=== PATIENT | female | born 1950 | race Caucasian/White ===

== ENCOUNTER 2016-12-18 20:08 | Emergency (ER) | payer MEDICARE, OTHER ==
[~2016-12-18] VITALS: Ht 167.6 cm; Wt 63.5 kg
[~2016-12-18 20:08] MED LIST: CIPR500T PO
[2016-12-18 20:14] VITALS: BP 170/87
[2016-12-18] MEDS ORDERED: IV NORMAL SALINE 1000ML BAG 1,000 ML IV ONE ×2 (20:30→21:30)
[2016-12-18 20:33] LABS: BASO # 0.1 x10^3/uL (0.0-0.2); BASO % 1 % (0-3); EOS % 3 % (0-3); HEMATOCRIT 38.7 % (36.0-47.0); HEMOGLOBIN 13.1 g/dL (12.0-15.5); LYMPH # 0.7 x10^3/uL (1.0-4.8); LYMPH % 7 % (24-48); MEAN CORPUSCULAR HEMOGLOBIN 29 pg (25-35); MEAN CORPUSCULAR HGB CONC 34 g/dL (31-37); MEAN CORPUSCULAR VOLUME 86 fL (79-100); MONO % 9 % (0-9); NEUT % 81 % (31-73); PLATELET COUNT 274 x10^3/uL (140-400); RED BLOOD COUNT 4.52 x10^6/uL (3.50-5.40); RED CELL DISTRIBUTION WIDTH 13.1 % (11.5-14.5); WHITE BLOOD COUNT 9.5 x10^3/uL (4.0-11.0)
[2016-12-18 20:46] LABS: OBC FLU VALID
[2016-12-18 20:46] LABS: CALCIUM 8.7 mg/dL (8.5-10.1); CREATININE 0.9 mg/dL (0.6-1.0); GFR 62.3; POTASSIUM 3.4 mmol/L (3.5-5.1)
[2016-12-18 20:52] LABS: ALBUMIN 3.6 g/dL (3.4-5.0); ALBUMIN/GLOBULIN RATIO 1.1 (1.0-1.7); TOTAL BILIRUBIN 0.3 mg/dL (0.2-1.0); TOTAL PROTEIN 6.9 g/dL (6.4-8.2)
--- NOTE | 2016-12-18 22:31 | PHYS DOC ---
Past Medical History Past Medical History: Asthma, Cancer, Depression Past Surgical History: Hysterectomy, Other Additional Past Surgical Histo: Bilateral cataracts Alcohol Use: Rarely Drug Use: None Adult General Chief Complaint Chief Complaint: FEVER HPI HPI 66-year-old female presented by EMS for fever and weakness the last several days with no nausea or vomiting. Patient does states she's had a cough and congestion and multiple sick contacts with influenza. Patient currently speaking in complete sentences in no respiratory distress at this time. Patient denies any chest pain. Review of Systems Review of Systems Constitutional: Has fever, has chills [] Eyes: Denies change in visual acuity, redness, or eye pain [] HENT: Denies nasal congestion or sore throat [] Respiratory: Has cough, denies shortness of breath [] Cardiovascular: No additional information not addressed in HPI [] GI: Denies abdominal pain, nausea, vomiting, bloody stools or diarrhea [] : Denies dysuria or hematuria [] Musculoskeletal: Denies back pain or joint pain [] Integument: Denies rash or skin lesions [] Neurologic: Denies headache, focal weakness or sensory changes [] Endocrine: Denies polyuria or polydipsia [] Current Medications Current Medications Current Medications Medications (Trade) Dose Ordered Sig/Fabrizio Start Time Stop Time Status Last Admin Dose Admin Sodium Chloride (Iv Sodium Chloride 0.9% 1000ml Bag) 1,000 ml @ 1,000 mls/hr 1X ONCE 12/18/16 21:30 12/18/16 22:29 DC 12/18/16 21:24 1,000 MLS/HR Allergies Allergies Allergies Coded Allergies Type Severity Reaction Last Updated Verified Penicillins Allergy Unknown 12/18/16 Yes Sulfa (Sulfonamide Antibiotics) Allergy Unknown 12/18/16 Yes erythromycin base Allergy Unknown 12/18/16 Yes Physical Exam Physical Exam Constitutional: Well developed, well nourished, no acute distress, non-toxic appearance. [] HENT: Normocephalic, atraumatic, bilateral external ears normal, oropharynx moist, no oral exudates, nose normal. [] Eyes: PERRLA, EOMI, conjunctiva normal, no discharge. [] Neck: Normal range of motion, no tenderness, supple, no stridor. [] Cardiovascular:Heart rate regular rhythm, no murmur [] Lungs & Thorax: Bilateral breath sounds clear to auscultation [] Abdomen: Bowel sounds normal, soft, no tenderness, no masses, no pulsatile masses. [] Skin: Warm, dry, no erythema, no rash. [] Back: No tenderness, no CVA tenderness. [] Extremities: No tenderness, no cyanosis, no clubbing, ROM intact, no edema. [] Neurologic: Alert and oriented X 3, normal motor function, normal sensory function, no focal deficits noted. [] Psychologic: Affect normal, judgement normal, mood normal. [] Current Patient Data Vital Signs Vital Signs Date Time Temp Pulse Resp B/P Pulse Ox O2 Delivery O2 Flow Rate FiO2 12/18/16 20:14 99.3 127 20 170/87 95 Room Air 99.3 Lab Values Laboratory Tests Test 12/18/16 20:10 12/18/16 20:23 Influenza Type A Antigen Negative (NEGATIVE) Influenza Type B Antigen Negative (NEGATIVE) White Blood Count 9.5x10^3/uL (4.0-11.0) Red Blood Count 4.52x10^6/uL (3.50-5.40) Hemoglobin 13.1g/dL (12.0-15.5) Hematocrit 38.7% (36.0-47.0) Mean Corpuscular Volume 86fL (79-100) Mean Corpuscular Hemoglobin 29pg (25-35) Mean Corpuscular Hemoglobin Concent 34g/dL (31-37) Red Cell Distribution Width 13.1% (11.5-14.5) Platelet Count 274x10^3/uL (140-400) Neutrophils (%) (Auto) 81% (31-73) H Lymphocytes (%) (Auto) 7% (24-48) L Monocytes (%) (Auto) 9% (0-9) Eosinophils (%) (Auto) 3% (0-3) Basophils (%) (Auto) 1% (0-3) Neutrophils # (Auto) 7.6x10^3uL (1.8-7.7) Lymphocytes # (Auto) 0.7x10^3/uL (1.0-4.8) L Monocytes # (Auto) 0.9x10^3/uL (0.0-1.1) Eosinophils # (Auto) 0.2x10^3/uL (0.0-0.7) Basophils # (Auto) 0.1x10^3/uL (0.0-0.2) Sodium Level 138mmol/L (136-145) Potassium Level 3.4mmol/L (3.5-5.1) L Chloride Level 103mmol/L (98-107) Carbon Dioxide Level 25mmol/L (21-32) Anion Gap 10 (6-14) Blood Urea Nitrogen 10mg/dL (7-20) Creatinine 0.9mg/dL (0.6-1.0) Estimated GFR (Cockcroft-Gault) 62.3 BUN/Creatinine Ratio 11 (6-20) Glucose Level 113mg/dL (70-99) H Lactic Acid Level 1.5mmol/L (0.4-2.0) Calcium Level 8.7mg/dL (8.5-10.1) Total Bilirubin 0.3mg/dL (0.2-1.0) Aspartate Amino Transferase (AST) 13U/L (15-37) L Alanine Aminotransferase (ALT) 18U/L (14-59) Alkaline Phosphatase 70U/L (46-116) Total Protein 6.9g/dL (6.4-8.2) Albumin 3.6g/dL (3.4-5.0) Albumin/Globulin Ratio 1.1 (1.0-1.7) Laboratory Tests 12/18/16 20:23 Laboratory Tests 12/18/16 20:23 EKG EKG EKG as interpreted by hi shows a sinus tachycardia with a rate of 113 bpm. There is slight QTC prolongation at 508 ms. There are no acute ST findings. Radiology/Procedures Radiology/Procedures Portable 1 view chest as interpreted by hi does not reveal any acute cardiopulmonary abnormality. Course & Med Decision Making Course & Med Decision Making Pertinent Labs and Imaging studies reviewed. (See chart for details) This 66-year-old female who presented with a mild tachycardia and findings concerning for influenza did not have influenza on swabs. Her laboratory workup was also negative. Her EKG and chest xray were unremarkable. Patient was given 2L of IV fluid with mild resolution of her tachycardia. I offered the patient admission for dehydration and weakness but she declined stating she had matters at home that she needed to attend to. I stated she must be judicious with her fluid intake and to follow closely with her primary doctor next 1-2 days. Patient was very agreeable as planned and ultimately discharged without incident. Dragon Disclaimer Dragon Disclaimer This electronic medical record was generated, in whole or in part, using a voice recognition dictation system. Departure Departure Impression: Primary Impression: Fever Disposition: 01 HOME, SELF-CARE Admitting Physician: Other Condition: STABLE Referrals: JONNA CREWS (PCP) Patient Instructions: Fever, Adult, [id number] Additional Instructions: Please continue to drink plenty of fluids and follow-up with your primary doctor in next 1-2 days. Return to the ER if you develop any worsening of your symptoms. SAM MARTIN DO Dec 18, 2016 22:31
--- NOTE | 2016-12-19 06:36 | EKG ---
[facility] [address] [place] [address] Test Date: 2016-12-18 Test Time: 20:40:46 Pat Name: ERIC HAY Department: Room: Gender: F [employer]: : 1950 Requested By: SAM MARTIN Order Number: [id number] Reading MD: Malissa Gage Measurements Intervals [place] Rate: 113 P: 36 ID: [id number] QRS: -16 QRSD: 84 T: 31 QT: 366 QTc: 508 Interpretive Statements SINUS TACHYCARDIA ATRIAL PREMATURE COMPLEX(ES) LEFTWARD AXIS ABNORMAL ECG RI6.01 No previous ECG available for comparison Electronically Signed On 12-20-2016 0:42:35 [employer] by Malissa Gage
--- NOTE | 2016-12-19 08:33 | RAD ---
Indication flulike symptoms for 2 days. A single view of the chest was obtained. No prior imaging of the chest is available. The heart and pulmonary vessels appear normal. The lungs are clear. There is no pleural fluid or pneumothorax and the visualized bony structures appear grossly intact. IMPRESSION: No acute or significant finding seen in the chest
== END 2016-12-18 22:40 | disposition home or self-care (01) ==
LOC: ER 20:08
DX: R50.9 Fever, unspecified (principal); R05 Cough; R00.0 Tachycardia, unspecified; R09.81 Nasal congestion; R53.1 Weakness; F32.9 Major depressive disorder, single episode, unspecified; J45.909 Unspecified asthma, uncomplicated; Z88.0 Allergy status to penicillin; Z88.2 Allergy status to sulfonamides; Z88.1 Allergy status to other antibiotic agents
CPT/HCPCS: 36415; 71010; 80053; 83605; 85027; 87804; 93005; 96360; 96361; 99285; J7030